=== PATIENT | female | born 1960 | race Caucasian/White ===

== ENCOUNTER → 2018-05-18 09:38 | Outpatient (CLI) | payer OTHER, SELFPAY ==
--- NOTE | 2018-05-18 | DI.MG.S_ITS ---
BILATERAL DIGITAL SCREENING MAMMOGRAM 3D/2D WITH CAD: 05/18/2018 CLINICAL: Routine screening. Comparison is made to exams dated: 05/28/2017 mammogram, 05/17/2017 mammogram, and 02/24/2012 mammogram - [facility]. There are scattered fibroglandular elements in both breasts. Current study was also evaluated with a Computer Aided Detection (CAD) system. There is a 0.3 cm oval equal density focal asymmetry with a circumscribed margin in the left breast at 7 o'clock middle depth. No other significant masses, calcifications, or other findings are seen in either breast. IMPRESSION: INCOMPLETE: NEEDS ADDITIONAL IMAGING EVALUATION The 0.3 cm oval equal density focal asymmetry in the left breast is indeterminate. An ultrasound is recommended. This exam was interpreted at Station ID: [id number]. NOTE: For mammograms, a report in lay terms will be sent to the patient. Approximately 15% of breast malignancies will not be visualized mammographically. In the management of a palpable breast mass, a negative mammogram must not discourage biopsy of a clinically suspicious lesion. Electronically Signed By: Yamil guzman/mary:05/18/2018 16:38:58 copy to: Jake Barker letter sent: Need Ultrasound ACR BI-RADS Category 0: Incomplete 3340F
== END ==
PROVIDERS: PCP Family Medicine; Visit Provider Nurse Practitioner Family
DX: Z12.31 Encounter for screening mammogram for malignant neoplasm of breast (principal)
CPT/HCPCS: 77063; 77067

== ENCOUNTER → 2018-05-27 14:39 | Outpatient (CLI) | payer OTHER, SELFPAY ==
--- NOTE | 2018-05-27 | DI.US.S_ITS ---
ULTRASOUND OF LEFT BREAST: 05/27/2018 CLINICAL: Patient returns for additional imaging over a suspected mass in the left breast. Comparison is made to exams dated: 05/18/2018 mammogram, 05/28/2017 ultrasound biopsy, and 05/17/2017 mammogram - [facility]. Color flow ultrasound of the left breast was performed on the areas of interest. Munoz scale images of the real-time examination were reviewed. There is a benign 0.3 cm x 0.3 cm x 0.3 cm cyst in the left breast at 7 o'clock middle depth. This cyst is anechoic with posterior acoustic enhancement. This correlates with mammography findings. IMPRESSION: BENIGN There is no sonographic evidence of malignancy. The 0.3 cm x 0.3 cm x 0.3 cm cyst in the left breast is benign. A 1 year screening mammogram is recommended. Electronically Signed By: Padmini wright/mary:05/27/2018 16:40:33 copy to: Jake Barker letter sent: Normal Exam Ultrasound BI-RADS: 2 Benign
== END ==
PROVIDERS: PCP Family Medicine; Visit Provider Nurse Practitioner Family
DX: R92.8 Other abnormal and inconclusive findings on diagnostic imaging of breast (principal); N60.02 Solitary cyst of left breast
CPT/HCPCS: 76642

== ENCOUNTER → 2019-05-19 07:36 | Outpatient (CLI) | payer OTHER, SELFPAY ==
--- NOTE | 2019-05-19 | DI.MG.S_ITS ---
BILATERAL DIGITAL SCREENING MAMMOGRAM 3D/2D WITH CAD: 05/19/2019 CLINICAL: Routine screening. Family history of breast cancer. Comparison is made to exams dated: 05/18/2018 mammogram, 05/17/2017 mammogram, 02/24/2012 mammogram, 05/28/2017 ultrasound biopsy, 05/28/2017 mammogram, and 05/17/2017 ultrasound - [facility]. There are scattered fibroglandular elements in both breasts. Current study was also evaluated with a Computer Aided Detection (CAD) system. There is an irregular indistinct focal asymmetry in the superior lateral left breast at subareolar to anterior depth, with possible associated architectural distortion. There is a biopsy clip in the superior lateral left breast. There is a scar marker overlying the left breast. There are bilateral circular mole markers overlying the breasts. IMPRESSION: INCOMPLETE: NEEDS ADDITIONAL IMAGING EVALUATION The irregular indistinct focal asymmetry with possible associated architectural distortion in the superior lateral left breast at subareolar to anterior depth is indeterminate. Additional mammographic views with possible targeted left breast ultrasound recommended for further evaluation. This exam was interpreted at Station ID: [id number]. NOTE: For mammograms, a report in lay terms will be sent to the patient. Approximately 15% of breast malignancies will not be visualized mammographically. In the management of a palpable breast mass, a negative mammogram must not discourage biopsy of a clinically suspicious lesion. Electronically Signed By: Douglas Cummins M.D. ecl/:05/19/2019 12:49:39 copy to: Jake Barker letter sent: Additional Imaging Needed ACR BI-RADS Category 0: Incomplete 3340F
== END ==
PROVIDERS: PCP Family Medicine; Visit Provider Family Medicine
DX: Z12.31 Encounter for screening mammogram for malignant neoplasm of breast (principal); Z80.3 Family history of malignant neoplasm of breast
CPT/HCPCS: 77063; 77067

== ENCOUNTER → 2019-06-08 12:41 | Outpatient (CLI) | payer OTHER, SELFPAY ==
--- NOTE | 2019-06-08 | DI.US.S_ITS ---
LIMITED ULTRASOUND OF LEFT BREAST: 06/08/2019 CLINICAL: Patient returns today to evaluate an architectural distortion in the left breast. Comparison is made to exams dated: 06/08/2019 mammogram, 05/19/2019 mammogram, 05/18/2018 mammogram, 05/28/2017 mammogram, 05/28/2017 ultrasound biopsy, and 05/17/2017 [facility]. Color flow and real-time ultrasound of the left breast 3 o'clock region were performed. Munoz scale images of the real-time examination were reviewed. There is 1 cm x 0.8 cm x 0.9 cm irregular area of fibroglandular tissue in the left breast at 3 o'clock anterior depth. This irregular area of fibroglandular tissue is hypoechoic. This abnormality is not significantly changed. Color flow imaging demonstrates that there is no increase in vascularity. This area was previously biopsied and found to be benign. There also is a dilated duct in the left breast central to the nipple in the retroareolar region immediately adjacent to the above abnormality. Color flow imaging demonstrates that there is no vascularity present. This also is stable compared to the previous study. IMPRESSION: PROBABLY BENIGN The 1 cm x 0.8 cm x 0.9 cm irregular area of fibroglandular tissue in the left breast at 3 o'clock anterior depth is probably benign, particularly given previous benign biopsy results. The dilated duct in the left breast central to the nipple in the retroareolar region is stable. A follow-up mammogram and an ultrasound in 6 months is recommended to demonstrate stability. This exam was interpreted at Station ID: [id number]. Electronically Signed By: Pam whittington/:06/08/2019 16:47:16 copy to: Jake Barker letter sent: Followup Recommended Ultrasound BI-RADS: 3 Probably benign
--- NOTE | 2019-06-08 | DI.MG.S_ITS ---
UNILATERAL LEFT DIGITAL DIAGNOSTIC MAMMOGRAM 3D/2D WITH ADDITIONAL VIEWS: 06/08/2019 CLINICAL: Additional evaluation requested from prior study. Comparison is made to exams dated: 05/19/2019 mammogram, 05/18/2018 mammogram, and 05/17/2017 mammogram - [facility]. There are scattered fibroglandular elements in left breast. There is an irregular focal asymmetry in the left breast at 3 o'clock anterior depth. This is not significantly changed compared to multiple prior exams. There is a biopsy clip associated with the focal asymmetry. No other significant masses or calcifications are seen in the breast. IMPRESSION: INCOMPLETE: NEEDS ADDITIONAL IMAGING EVALUATION The irregular focal asymmetry in the left breast is indeterminate. An ultrasound is recommended to assess for stability. This was performed immediately following this exam. This exam was interpreted at Station ID: [id number]. NOTE: For mammograms, a report in lay terms will be sent to the patient. Approximately 15% of breast malignancies will not be visualized mammographically. In the management of a palpable breast mass, a negative mammogram must not discourage biopsy of a clinically suspicious lesion. Electronically Signed By: Pam whittington/:06/08/2019 16:36:52 copy to: Jake GAXIOLA BI-RADS Category 0: Incomplete 3340F
== END ==
PROVIDERS: PCP Nurse Practitioner Family; Visit Provider Nurse Practitioner Family
DX: R92.8 Other abnormal and inconclusive findings on diagnostic imaging of breast (principal); N60.42 Mammary duct ectasia of left breast
CPT/HCPCS: 76642; 77065; G0279

== ENCOUNTER → 2019-08-23 09:54 | Outpatient (CLI) | payer OTHER, SELFPAY ==
--- NOTE | 2019-08-23 | DI.US.S_ITS ---
PROCEDURE: US PERIPH VENOUS LOW EXTREM LT INDICATIONS: Contusion of left lower leg, initial encounter TECHNIQUE: Real-time imaging, as well as color and pulse Doppler interrogation, were performed of the lower extremity deep veins from the inguinal ligament to the popliteal fossa. COMPARISON: None. FINDINGS: The common femoral, femoral and popliteal veins are normally compressible, and free of intraluminal thrombus. Color and pulse Doppler demonstrate normal phasic intraluminal flow. There is normal augmentation response to distal compression maneuver. No masses or fluid collections seen within the left anterior medial mitchell. IMPRESSION: 1. No deep venous thrombosis identified within the left lower extremity. Dictated by: Giovany STANLEY Interpreted: Rowan Hankins MD on 08/23/2019 at 10:53 Approved by: Rowan Hankins M.D. on 08/23/2019 at 13:48
== END ==
PROVIDERS: PCP Nurse Practitioner Family; Visit Provider Nurse Practitioner Family
DX: S80.12XA Contusion of left lower leg, initial encounter (principal)
CPT/HCPCS: 93971

== ENCOUNTER → 2019-11-10 15:45 | Outpatient (CLI) | payer OTHER, SELFPAY ==
--- NOTE | 2019-11-10 | DI.RAD.S_ITS ---
PROCEDURE: XR KNEE LT 3V INDICATIONS: xr rt/lt knee acite/ mild swelling TECHNIQUE: 3 views of the knee were acquired. COMPARISON: [facility], CR, XR KNEE RT 3V, 11/10/2019, 15:45. FINDINGS: Bones: No fractures or dislocations. No suspicious bony lesions. Trace narrowing of the medial femorotibial joint. Soft tissues: Small joint effusion. No suspicious soft tissue calcifications. IMPRESSION: Trace narrowing of the medial femorotibial joint and small joint effusion. If pain persists with conservative management, consider cross-sectional imaging such as CT or MRI for further assessment. Dictated by: Giovany Chand [facility] Interpreted: Raul Wright MD on 11/10/2019 at 16:07 Approved by: Raul Wright M.D. on 11/10/2019 at 16:46
--- NOTE | 2019-11-10 | DI.RAD.S_ITS ---
PROCEDURE: XR KNEE RT 3V INDICATIONS: xr rt/lt knee acite/ mild swelling TECHNIQUE: 4 views of the knee were acquired. COMPARISON: None. FINDINGS: Bones: No fractures or dislocations. No suspicious bony lesions. Trace narrowing of the medial and lateral femorotibial joints. Soft tissues: Small joint effusion. No suspicious soft tissue calcifications. IMPRESSION: 1. Small knee joint effusion and trace narrowing of the medial and lateral femorotibial joints. If pain persist with conservative management, consider advancing imaging such as MRI for further assessment. Dictated by: Giovany Chand [facility] Interpreted: Raul Wright MD on 11/10/2019 at 16:06 Approved by: Raul Wright M.D. on 11/10/2019 at 16:46
== END ==
PROVIDERS: PCP Nurse Practitioner Family; Visit Provider Nurse Practitioner Family
DX: M25.561 Pain in right knee (principal); M25.462 Effusion, left knee; M25.461 Effusion, right knee
CPT/HCPCS: 73562

== ENCOUNTER → 2020-05-27 13:39 | Outpatient (CLI) | payer OTHER, SELFPAY ==
--- NOTE | 2020-05-27 | DI.US.S_ITS ---
LIMITED ULTRASOUND OF LEFT BREAST: 05/27/2020 CLINICAL: Patient returns today to evaluate a focal asymmetry in the left breast. Comparison is made to exams dated: 05/27/2020 mammogram, 06/08/2019 ultrasound, 06/08/2019 mammogram, 05/19/2019 mammogram, and 05/27/2018 ultrasound - [facility]. Color flow and real-time ultrasound of the left breast 3 o'clock, and retroareolar regions were performed on the areas of interest. There is a dilated duct in the left breast at 3 o'clock in the retroareolar region. This dilated duct displays internal echoes and ill-defined hypoechoic soft tissue. This abnormality is not significantly changed and correlates with mammography findings and the previous biopsy. There is an associated biopsy clip. Color flow imaging demonstrates that there is no vascularity present. There also is a 0.4 cm x 0.4 cm x 0.2 cm oval cyst in the left breast at 3 o'clock middle depth. This oval cyst is hypoechoic with a well-defined boundary and internal echoes. This correlates with mammography findings. Color flow imaging demonstrates that there is no vascularity present. IMPRESSION: PROBABLY BENIGN The dilated duct in the left breast at 3 o'clock in the retroareolar region with hypoechoic internal soft tissue corresponding to the prior biopsy is probably benign. Follow-up mammogram and ultrasound in 6 months are recommended. The 0.4 cm x 0.4 cm x 0.2 cm oval cyst in the left breast at 3 o'clock middle depth is consistent with a complicated cyst and is probably benign. Follow-up mammogram and ultrasound in 6 months are recommended. A follow-up mammogram and an ultrasound in 6 months is recommended to demonstrate stability. This exam was interpreted at Station ID: [id number]. Electronically Signed By: Yamil Romero M.D. ddp/:05/27/2020 15:40:37 copy to: Jake Barker copy to: Shanta Carrillo letter sent: Followup Recommended Ultrasound BI-RADS: 3 Probably benign
--- NOTE | 2020-05-27 | DI.MG.S_ITS ---
BILATERAL DIGITAL DIAGNOSTIC MAMMOGRAM 3D/2D SHORT-TERM FOLLOW-UP: 05/27/2020 CLINICAL: Patient returns for a 6 month follow up of the left breast, due for bilateral imaging. Comparison is made to exams dated: 06/08/2019 mammogram, 05/19/2019 mammogram, and 05/18/2018 mammogram - [facility]. There are scattered fibroglandular elements in both breasts. There is an irregular equal density asymmetry with an indistinct margin in the left breast at 3 o'clock anterior depth. This is not significantly changed. There also is a new 0.4 cm oval low density focal asymmetry with an indistinct and circumscribed margin in the left breast at 3 o'clock middle depth. No other significant masses, calcifications, or other findings are seen in either breast. IMPRESSION: INCOMPLETE: NEEDS ADDITIONAL IMAGING EVALUATION The irregular equal density asymmetry in the left breast at 3 o'clock anterior depth is indeterminate. An ultrasound is recommended. The new 0.4 cm oval low density focal asymmetry in the left breast at 3 o'clock middle depth is indeterminate. An ultrasound is recommended. This exam was interpreted at Station ID: [id number]. NOTE: For mammograms, a report in lay terms will be sent to the patient. Approximately 15% of breast malignancies will not be visualized mammographically. In the management of a palpable breast mass, a negative mammogram must not discourage biopsy of a clinically suspicious lesion. Electronically Signed By: Yamil guzman/mary:05/27/2020 14:56:24 copy to: Jake Barker copy to: Shanta GAXIOLA BI-RADS Category 0: Incomplete 3340F
== END ==
PROVIDERS: PCP Internal Medicine; Referring Provider Nurse Practitioner Family; Visit Provider Nurse Practitioner Family
DX: R92.8 Other abnormal and inconclusive findings on diagnostic imaging of breast (principal); N60.02 Solitary cyst of left breast; N60.42 Mammary duct ectasia of left breast
CPT/HCPCS: 76642; 77066; G0279

== ENCOUNTER → 2021-02-28 15:02 | Outpatient (CLI) | payer OTHER, SELFPAY ==
--- NOTE | 2021-02-28 | DI.MG.S_ITS ---
BILATERAL DIGITAL DIAGNOSTIC MAMMOGRAM 3D/2D SHORT-TERM FOLLOW-UP: 02/28/2021 CLINICAL: Short term follow up of the left breast, due for bilateral imaging. Comparison is made to exams dated: 05/27/2020 mammogram, 06/08/2019 mammogram, and 05/19/2019 mammogram - [facility]. There are scattered fibroglandular elements in both breasts. There is an irregular equal density asymmetry with an indistinct margin in the left breast at 3 o'clock anterior depth. This is not significantly changed. There also is a 0.4 cm oval low density focal asymmetry with an obscured margin in the left breast at 3 o'clock middle depth. This is not significantly changed. No other significant masses, calcifications, or other findings are seen in either breast. IMPRESSION: INCOMPLETE: NEEDS ADDITIONAL IMAGING EVALUATION The irregular equal density asymmetry in the left breast at 3 o'clock anterior depth remains indeterminate. An ultrasound is recommended for further evaluation and is scheduled to immediately follow this examination. The 0.4 cm oval low density focal asymmetry in the left breast at 3 o'clock middle depth also remains indeterminate. An ultrasound is recommended for further evaluation and is scheduled to immediately follow this examination. This exam was interpreted at Station ID: [id number]. NOTE: For mammograms, a report in lay terms will be sent to the patient. Approximately 15% of breast malignancies will not be visualized mammographically. In the management of a palpable breast mass, a negative mammogram must not discourage biopsy of a clinically suspicious lesion. Electronically Signed By: Roland Orellana M.D. aty/:02/28/2021 15:55:39 copy to: Jake Barker copy to: Shanta Carrillo ACR BI-RADS Category 0: Incomplete 3340F
--- NOTE | 2021-02-28 15:05 | DI.US.S_ITS ---
ULTRASOUND OF LEFT BREAST: 02/28/2021 CLINICAL: Patient returns today to evaluate a focal asymmetry in the left breast. Comparison is made to exams dated: 02/28/2021 mammogram, 05/27/2020 ultrasound, 05/27/2020 mammogram, 06/08/2019 ultrasound, 06/08/2019 mammogram, and 05/19/2019 mammogram - [facility]. Color flow and real-time ultrasound of the left breast were performed. Munoz scale images of the real-time examination were reviewed. There is a minimallly dilated duct in the left breast at 3 o'clock in the retroareolar region. This dilated duct displays internal echoes/debris. This abnormality is not significantly changed and correlates with mammography findings and the previous biopsy. There is an associated biopsy clip. Color flow imaging demonstrates that there is no vascularity present. There also is a 0.4 cm x 0.2 cm x 0.2 cm oval cyst in the left breast at 3 o'clock middle depth 5 cm from the nipple. This oval cyst is hypoechoic with a well-defined boundary and internal echoes. This abnormality is not significantly changed and correlates with mammography findings. Color flow imaging demonstrates that there is no vascularity present. IMPRESSION: PROBABLY BENIGN The minimally dilated duct in the left breast at 3 o'clock in the retroareolar region is not significantly changed and is probably benign. The 0.4 cm x 0.2 cm x 0.2 cm oval cyst in the left breast at 3 o'clock middle depth is consistent with a complicated cyst and is probably benign. A follow-up bilateral mammogram and a left ultrasound in 12 months is recommended to document long-term stability. Findings and recommendations were conveyed to the patient during today's evaluation. This exam was interpreted at Station ID: [id number]. Electronically Signed By: Roland Orellana M.D. aty/:02/28/2021 17:20:59 copy to: Jake Barker copy to: Shanta Carrillo letter sent: Followup Recommended Ultrasound BI-RADS: 3 Probably benign
== END ==
PROVIDERS: PCP Internal Medicine; Referring Provider Internal Medicine; Visit Provider Internal Medicine
DX: R92.8 Other abnormal and inconclusive findings on diagnostic imaging of breast (principal); N60.02 Solitary cyst of left breast
CPT/HCPCS: 76642; 77066; G0279

== ENCOUNTER → 2021-03-21 08:09 | Outpatient (CLI) | payer OTHER, SELFPAY ==
[2021-03-21] MEDS: COVID-19 VACC #1, MRNA(MOD) 100 MCG/0.5 ML VIAL IM (08:20)
== END ==
PROVIDERS: PCP Internal Medicine; Visit Provider Internal Medicine
DX: Z23 Encounter for immunization (principal)
CPT/HCPCS: 0011A; 91301

== ENCOUNTER → 2021-04-18 08:04 | Outpatient (CLI) | payer OTHER, SELFPAY ==
[2021-04-18] MEDS: COVID-19 VACC #2, MRNA(MOD) 100 MCG/0.5 ML VIAL IM (08:08)
== END ==
PROVIDERS: PCP Internal Medicine; Visit Provider Internal Medicine
DX: Z23 Encounter for immunization (principal)
CPT/HCPCS: 0012A; 91301

== ENCOUNTER → 2022-06-22 11:51 | Outpatient (CLI) | payer OTHER, SELFPAY ==
--- NOTE | 2022-06-22 | DI.MG.S_ITS ---
BILATERAL DIGITAL DIAGNOSTIC MAMMOGRAM 3D/2D SHORT-TERM FOLLOW-UP: 06/22/2022 CLINICAL: Short term follow up of the left breast, due for bilateral imaging. Comparison is made to exams dated: 02/28/2021 mammogram, 05/27/2020 mammogram, 06/08/2019 mammogram, 05/19/2019 mammogram, and 02/28/2021 [facility]. There are scattered fibroglandular elements in both breasts. There is an asymmetry in the left breast at 3 o'clock anterior depth. This is not significantly changed. There also is a focal asymmetry in the left breast at 3 o'clock middle depth. This is less prominent. No other significant masses, calcifications, or other findings are seen in either breast. IMPRESSION: INCOMPLETE: NEEDS ADDITIONAL IMAGING EVALUATION The asymmetry in the left breast at 3 o'clock anterior depth most likely is fibroglandular tissue and is indeterminate. The focal asymmetry in the left breast at 3 o'clock middle depth is consistent with fibroglandular tissue and is benign. Based on Tyrer-Cuzick model (a risk assessment model), the patient's lifetime risk is 21.0% and her 10 year risk is 8.4%. If a patient has an elevated risk, a more comprehensive evaluation should be considered and/or a referral to a genetic counselor. The [place] [employer], [employer], and NCCN Guidelines advise the consideration of Breast MRI as an adjunct to screening mammography in patients whose Lifetime risk to develop breast cancer is 20% or higher. This exam was interpreted at Station ID: [id number]. NOTE: For mammograms, a report in lay terms will be sent to the patient. Approximately 15% of breast malignancies will not be visualized mammographically. In the management of a palpable breast mass, a negative mammogram must not discourage biopsy of a clinically suspicious lesion. Electronically Signed By: Aston Colvin M.D. slc/:06/22/2022 12:47:10 copy to: Jake Barker copy to: Shanta GAXIOLA BI-RADS Category 0: Incomplete 3340F
--- NOTE | 2022-06-22 | DI.US.S_ITS ---
LIMITED ULTRASOUND OF LEFT BREAST: 06/22/2022 CLINICAL: 2 year follow up from left breast bx w/clip. Comparison is made to exams dated: 06/22/2022 mammogram, 02/28/2021 ultrasound, 02/28/2021 mammogram, 05/27/2020 mammogram, 05/27/2020 ultrasound, and 06/08/[address] [facility]. Color flow and real-time ultrasound of the left breast 3 o'clock region were performed. Munoz scale images of the real-time examination were reviewed. There is a benign 1.7 cm x 0.6 cm x 0.5 cm oval mass or debris in the left breast at 3 o'clock middle depth. This oval intraductal mass is hypoechoic. This abnormality is not significantly changed. There is an associated biopsy clip. Color flow imaging demonstrates that there is no vascularity present. There also is a stable benign 0.6 cm x 0.4 cm x 0.2 cm round cyst in the left breast at 3 o'clock middle depth 5 cm from the nipple. This round cyst is anechoic and hypoechoic with a well-defined boundary. This correlates with mammography findings. Color flow imaging demonstrates that there is no vascularity present. IMPRESSION: BENIGN There is no sonographic evidence of malignancy. The 1.7 cm mass or intraductal debris in the left breast at 3 o'clock middle depth is benign. The stable 0.6 cm complicated cyst in the left breast at 3 o'clock middle depth is benign. A 1 year screening mammogram is recommended. This exam was interpreted at Station ID: [id number]. Electronically Signed By: Aston Colvin M.D. slc/:06/22/2022 13:31:37 copy to: Jake Barker copy to: hSanta Carrillo letter sent: Normal Exam Ultrasound BI-RADS: 2 Benign
== END ==
PROVIDERS: PCP Internal Medicine; Referring Provider Internal Medicine; Visit Provider Internal Medicine
DX: R92.8 Other abnormal and inconclusive findings on diagnostic imaging of breast (principal); N60.02 Solitary cyst of left breast
CPT/HCPCS: 76642; 77066; G0279

== ENCOUNTER → 2022-08-05 09:27 | Outpatient (CLI) | payer OTHER, SELFPAY ==
[2022-08-05 12:15] LABS: COVID19 -Nasal RAPID Negative (Negative)
== END ==
PROVIDERS: PCP Internal Medicine; Visit Provider Surgery
DX: Z01.812 Encounter for preprocedural laboratory examination (principal); Z20.822 Contact with and (suspected) exposure to COVID-19
CPT/HCPCS: 87635; C9803

== ENCOUNTER 2022-08-06 13:32 | Day surgery (SDC) | payer OTHER, SELFPAY ==
[2022-08-06 13:56] VITALS: BP 170/84; PULSE 67; RESP 19; TEMP 36; O2SAT 98; BMI 48.7
[2022-08-06] MEDS: LACTATED RINGERS 1,000 ML 42 ML IV (14:09)
--- NOTE | 2022-08-06 14:22 | PM.HP.1 ---
History of Present Illness History of Present Illness Date Patient Seen: 08/06/22 Time Patient Seen: 14:22 Chief complaint: SDC Narrative: Camila is a 61-year-old woman here for a colonoscopy for colon cancer screening. Her last colonoscopy was about 7 years ago here and no polyps were removed. She has no first-degree relatives who have had colon cancer. Patient History Surgical History (Updated 03/29/18 @ 06:18 by Conversion Provider) Status post surgery (03/21/12) Family & Social History Social History: household members spouse Tobacco & Substance use: Smoking Status Never smoker alcohol intake frequency holiday/special occasion Substance Use Type does not use Meds Home Medications and Allergies Home Medications Medication Instructions Recorded Confirmed Type atorvastatin 10 mg tablet 10 mg PO DAILY 08/06/22 08/06/22 History chlorthalidone 25 mg tablet 25 mg PO DAILY 08/06/22 08/06/22 History Exam Vital Signs (past 8 hours): - 08/06/22 13:56 Temperature 96.8 F L Pulse Rate 67 Respiratory Rate 19 Blood Pressure 170/84 H Pulse Oximetry 98 Oxygen Delivery Method Room Air Oxygen Delivery Method Room Air Const General: No acute distress Resp Effort & Inspection: normal respiratory effort Assessment & Plan Assessment and plan (1) Colon cancer screening: Status: Acute Plan 61-year-old woman in for colonoscopy for colon cancer screening. We reviewed the risks and benefits and she would like to proceed. Time Spent With Patient Critical Care time: I spent a total of [] minutes of critical care time on this patient's care today; this time is exclusive of procedural time.
[2022-08-06] MEDS: fentaNYL 100 MCG/2 ML INJ 200 MCG IV (14:45)
[2022-08-06] MEDS: MIDAZOLAM 5 MG/5 ML VIAL 8 MG IV (14:45)
--- NOTE | 2022-08-06 14:54 | P.OP.COLON_ITS ---
Operative Date/Time/Diagnoses Date of procedure: 08/06/22 Time of procedure: 14:54 Pre-op diagnosis: Colon cancer screening Post-op diagnosis: same Procedure & Clinicians Study performed: Colonoscopy Surgeon: Wing Alarcon Procedure Notes Procedure in detail: Surgeon: Wing Alarcon MD Procedure: The patient was brought to the endoscopy suite, placed in left lateral decubitus position. The patient was connected to monitoring devices. A time-out was performed. Sedation was administered. Once the patient was a dequately sedated, a digital rectal exam was performed and was normal. The scope was then inserted and advanced and advanced. The patient had an extremely redundant long colon and the scope could not reach the cecum despite being inserted to the dials. Manual pressure was applied and the patient was repositioned on her back with no improvement in getting to the cecum. The scope stiffener was used with no improvement. The scope was then slowly withdrawn. The mucosa was thoroughly inspected. No abnormalities were noted. The scope could not be retroflexed in the rectum because the sphincter tone was too low to hold any air in the rectal vault. The mucosa was inspected carefully as the scope was slowly withdrawn and no lesions were noted. The patient was awakened and brought to recovery. Versed: 8 mg Fentanyl: 200 mcg EBL: 0 Findings: Normal distal colon Scope withdrawal time: Not applicable Sedation minutes: 22 Post-procedure Plan for aftercare: A barium enema will be ordered to assess the proximal colon Disposition: PACU
[2022-08-06 15:03] VITALS: BP 156/98; PULSE 79; RESP 16; TEMP 36.3; O2SAT 94
[2022-08-06 15:07] VITALS: BP 156/95; PULSE 76; RESP 16; TEMP 36.3; O2SAT 95
[2022-08-06 15:20] VITALS: BP 141/75; PULSE 72; RESP 16; TEMP 36.2; O2SAT 98
[2022-08-06 15:21] VITALS: BP 141/100; PULSE 74; RESP 16; TEMP 36.3; O2SAT 100
--- NOTE | 2022-08-06 15:53 | SUR.PREOP ---
Patient ambulated to wheelchair without difficulty. Tolerated PO. Provided written and verbal discharge instructions. Patient signed and stated understanding. Discharged by wheelchair to private vehicle in stable condition.
== END 2022-08-06 15:41 | disposition home or self-care (01) ==
PROVIDERS: PCP Internal Medicine; Referring Provider Surgery; Visit Provider Surgery
PROC: 0DJD8ZZ Inspection of Lower Intestinal Tract, Via Natural or Artificial Opening Endoscopic (ICD-10-PCS; CPT 45378; principal; 2022-08-06 14:30)
DX: Z12.11 Encounter for screening for malignant neoplasm of colon (principal); Z53.09 Procedure and treatment not carried out because of other contraindication
CPT/HCPCS: 45378; 99152; J2250; J3010

== ENCOUNTER → 2022-10-06 09:58 | Outpatient (CLI) | payer OTHER, SELFPAY ==
--- NOTE | 2022-10-06 09:59 | DI.RAD.S_ITS ---
PROCEDURE: FL BARIUM ENEMA W AIR CONTRAST INDICATIONS: Unable to complete colonoscopy COMPARISON: [facility], BARIUM ENEMA W AIR CONTRAST, 11/19/2011, 10:03. [facility], US BREAST LT LIMITED, 06/22/2022, 12:48. FINDINGS: KUB: Pre-procedural juvenile detention officer film demonstrates a normal bowel gas pattern. No suspicious abdominal calcifications. Visualized solid organ contours are normal in size. No suspicious bony lesions. Cholecystectomy clips are noted. Degenerative changes in lumbar spine. Colon: Colon is redundant and suboptimal air inflation. The cecum is in the left side of the abdomen and descending colon is on the right side of the abdomen, consistent with malrotation. There are scattered colonic diverticula. No strictures, ulcers, polyps, or masses are seen. Haustral folds are normal in thickness throughout. IMPRESSION: 1. Complete malrotation with cecum on the left side of abdomen and descending colon on the right side of the abdomen. 2. Mild colonic diverticulosis. 3. No colon polyps or masses are identified. The examination is somewhat suboptimal due to redundant colon and suboptimal air inflation. Dictated by: Anitha Ragsdale M.D. on 10/06/2022 at 19:58 Approved by: Anitha Ragsdale M.D. on 10/07/2022 at 11:24
== END ==
PROVIDERS: PCP Internal Medicine; Referring Provider Surgery; Visit Provider Surgery
DX: Z12.11 Encounter for screening for malignant neoplasm of colon (principal); Q43.3 Congenital malformations of intestinal fixation; Q43.8 Other specified congenital malformations of intestine; K57.30 Diverticulosis of large intestine without perforation or abscess without bleeding
CPT/HCPCS: 74280

== ENCOUNTER → 2022-12-18 13:52 | Outpatient (CLI) | payer OTHER, SELFPAY ==
--- NOTE | 2022-12-18 | DI.US.S_ITS ---
PROCEDURE: US PERIPH VENOUS LOW EXTREM RT INDICATIONS: PAIN AND LOCALIZED SWELLING, MASS, OR LUMP. RULE OUT DVT. TECHNIQUE: Real-time imaging, as well as color and pulse Doppler interrogation, were performed of the lower extremity deep veins from the inguinal ligament to the popliteal fossa. COMPARISON: None. FINDINGS: The common femoral, femoral and popliteal veins are normally compressible, and free of intraluminal thrombus. Color and pulse Doppler demonstrate normal phasic intraluminal flow. There is normal augmentation response to distal compression maneuver. IMPRESSION: Negative for deep venous thrombosis. Dictated by: Jameel Dennis M.D. on 12/18/2022 at 13:36 Approved by: Jameel Dennis M.D. on 12/18/2022 at 13:37
== END ==
PROVIDERS: PCP Internal Medicine; Referring Provider Internal Medicine; Visit Provider Internal Medicine
DX: M79.604 Pain in right leg (principal); R22.41 Localized swelling, mass and lump, right lower limb
CPT/HCPCS: 93971

== ENCOUNTER → 2024-01-10 10:28 | Outpatient (CLI) | payer OTHER, SELFPAY ==
--- NOTE | 2024-01-10 | DI.US.S_ITS ---
ULTRASOUND OF LEFT BREAST: 01/10/2024 CLINICAL: Bloody nipple discharge left breast. Comparison is made to exams dated: 01/10/2024 mammogram, 06/22/2022 ultrasound, 06/22/2022 mammogram, 02/28/2021 ultrasound, 02/28/2021 mammogram, and 05/27/2020 ultrasound - [facility]. Color flow and real-time ultrasound of the left breast were performed. Munoz scale images of the real-time examination were reviewed. There is a 2 cm x 0.7 cm x 0.4 cm irregular intraductal mass in the left breast at 3 o'clock middle depth. This irregular intraductal mass is hypoechoic. This abnormality is increased in size and correlates with the nipple discharge. There is an associated biopsy clip. Color flow imaging demonstrates that there is vascularity present. No significant axillary abnormality. IMPRESSION: SUSPICIOUS OF MALIGNANCY The 2 cm x 0.7 cm x 0.4 cm irregular intraductal mass in the left breast is suspicious of malignancy. This was previously followed and biopsied with no malignant results. However, this has slightly increased in size. Patient reports recent new bloody nipple discharge. US biopsy recommended. No significant axillary abnormality. This exam was interpreted at Station ID: [id number]. Electronically Signed By: Ferny Hammond M.D. lc/:01/10/2024 12:08:03 copy to: Jake Barker copy to: Shanta Carrillo letter sent: Biopsy Required Ultrasound BI-RADS: 4 Suspicious for malignancy
--- NOTE | 2024-01-10 | DI.MG.S_ITS ---
BILATERAL DIGITAL DIAGNOSTIC MAMMOGRAM 3D/2D: 01/10/2024 CLINICAL: Bloody discharge. Comparison is made to exams dated: 06/22/2022 mammogram, 02/28/2021 mammogram, and 05/27/2020 mammogram - [facility]. There are scattered areas of fibroglandular density in both breasts (category b / 25%-50% glandular tissue). There is a stable focal asymmetry in the left breast at 3 o'clock anterior depth. This may correspond to new bloody discharge. No other significant masses, calcifications, or other findings are seen in either breast. IMPRESSION: INCOMPLETE: NEEDS ADDITIONAL IMAGING EVALUATION The stable focal asymmetry in the left breast is indeterminate. An ultrasound is recommended. This may correspond to new bloody discharge. Based on Tyrer-Cuzick model (a risk assessment model), the patient's lifetime risk is 20.2% and her 10 year risk is 8.7%. If a patient has an elevated risk, a more comprehensive evaluation should be considered and/or a referral to a genetic counselor. The [employer], [employer], and NCCN Guidelines advise the consideration of Breast MRI as an adjunct to screening mammography in patients whose Lifetime risk to develop breast cancer is 20% or higher. This exam was interpreted at Station ID: [id number]. NOTE: For mammograms, a report in lay terms will be sent to the patient. Approximately 15% of breast malignancies will not be visualized mammographically. In the management of a palpable breast mass, a negative mammogram must not discourage biopsy of a clinically suspicious lesion. Electronically Signed By: Ferny Hammond M.D. lc/:01/10/2024 12:03:28 copy to: Jake Barker copy to: Shanta Carrillo ACR BI-RADS Category 0: Incomplete [id number]
== END ==
PROVIDERS: PCP Internal Medicine; Referring Provider Internal Medicine; Visit Provider Internal Medicine
DX: R92.8 Other abnormal and inconclusive findings on diagnostic imaging of breast (principal); N63.15 Unspecified lump in the right breast, overlapping quadrants; N64.52 Nipple discharge; R92.323 Mammographic fibroglandular density, bilateral breasts
CPT/HCPCS: 76642; 77066; G0279

== ENCOUNTER → 2024-01-24 13:24 | Outpatient (CLI) | payer OTHER, SELFPAY ==
--- NOTE | 2024-01-24 | DI.US.S_ITS ---
ULTRASOUND GUIDED BIOPSY LEFT BREAST WITH MARKING DEVICE INSERTED AND POST MAMMOGRAPHIC IMAGIN01/24/2024 CLINICAL: Left breast mass. PATIENT CONSENT: Risks (minor bleeding, infection, vasovagal reaction and repeat procedure), benefits and alternatives were explained to the patient and written informed consent was obtained. Correlation is made to exams dated: 01/10/2024 ultrasound, 01/10/2024 mammogram, 06/22/2022 ultrasound, 06/22/2022 mammogram, 02/28/2021 ultrasound, and 02/28/2021 mammogram - [facility]. An ultrasound guided biopsy using real-time ultrasound was performed for the irregular shaped mass located in the left breast at 3 o'clock anterior depth. This was described on the previous mammography and ultrasound reports. The skin was prepped in the usual manner. Local anesthetic was administered to the access site. The abnormality was approached from the lateral aspect. An 18 gauge biopsy needle was placed adjacent to the abnormality through an introducer device under ultrasound guidance. Once the needle was documented to be in the correct location, seven specimens were obtained using a BARD biopsy device. A Vision clip was inserted into the biopsy cavity. A sterile dressing was applied to the access site. Post procedure mammographic imaging demonstrates the location device at the targeted area. The specimens were sent to the laboratory for pathological analysis. IMPRESSION: ULTRASOUND GUIDED BIOPSY BENIGN Ultrasound guided biopsy of the mass in the left breast at 3 o'clock anterior depth was successful. Pathology indicates papilloma (PA). Pathology results are concordant with imaging findings. A follow-up ultrasound in 6 months is recommended to demonstrate stability. This exam was interpreted at Station ID: [id number]. Roland salas,[facility]/:01/28/2024 12:48:25 copy to: Jake Barker copy to: Shanta Carrillo
--- NOTE | 2024-01-24 | PATH_ITS ---
[facility] Accession Number: [id number] No. of containers..01 Tissue . 01 Material submitted: . breast - LEFT BREAST NDL CORE . 01 Clinical history: . LEFT BREAST 3:00 RETRO MASS . 01 Diagnosis: LEFT BREAST, 3 O'CLOCK, RETRO, IMAGE-GUIDED CORE BIOPSY: Scant hyalinized fibrous tissue with changes suggestive of a sclerosed papilloma. See comment. MRV 01/27/2024 1718 Local . 01 Comment: The specimen is relatively scant and consists primarily of hyalinized fibrous tissue. A single detached fragment of a papillary epithelial lesion is seen without significant cytologic atypia. A limited panel of immunostains is performed on block A2, with the controls stained appropriately. The myoepithelial markers p63 and smooth muscle myosin heavy chain show positive staining around all of the ducts and also around the epithelial cells within the papillary lesion. 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 . * This test was developed and its performance characteristics determined by [facility]. It has not been cleared or approved by the U.S. Food and Drug Administration. The FDA has determined that such clearance or approval is not necessary. This test is used for clinical purposes. It should not be regarded as investigational or for research. . 01 Electronically signed: . Camila Matamoros MD, Pathologist NPI- [id number] . 01 Gross description: . The specimen is received in formalin labeled with the patient's name, , and US breast needle core biopsy, consists of 12 delicate cores of yellow-white fibrofatty soft tissue ranging from 0.1 to 0.7 cm in length and averaging 0.1 cm in diameter. The tissue is entirely submitted in cassettes A1-A2. . Time in formalin: 01/24/2024 at 1435. Cold ischemic time cannot be determined. Formalin fixation time is approximately 30 hours. ([id number]) /MRV 01/25/2024 1456 Local . 01 Pathologist provided ICD-10: N63.20 . 01 CPT . 111599, H58402, H89085 Specimen Comment: A courtesy copy of this report has been sent to [phone] Specimen Comment: A duplicate report has been generated due to demographic updates. Performed at: 01 [facility] [address] [place] [address] [address], [place], [place] [id number] MD Yamil Mckeon MD Phone: [phone]
--- NOTE | 2024-01-24 13:26 | DI.MG.S_ITS ---
UNILATERAL LEFT DIGITAL DIAGNOSTIC MAMMOGRAM 3D/2D POST-PROCEDURE IMAGING FOR MARKER PLACEMENT: 01/24/2024 CLINICAL: Post left breast ultrasound biopsy, clip placement imaging. Comparison is made to exams dated: 01/10/2024 ultrasound, 01/10/2024 mammogram, 06/22/2022 mammogram, and 06/22/2022 ultrasound - [facility]. There are scattered areas of fibroglandular density in the left breast (category b / 25%-50% glandular tissue). There is a marker clip in the appropriate position in the left breast at 3 o'clock anterior depth. This marker clip placement is at the biopsy site. This correlates with ultrasound findings and the biopsy. IMPRESSION: POST PROCEDURE MAMMOGRAM FOR MARKER PLACEMENT There was a successful marker clip placement in the left breast anterior depth. Based on Tyrer-Cuzick model (a risk assessment model), the patient's lifetime risk is 20.2% and her 10 year risk is 8.7%. If a patient has an elevated risk, a more comprehensive evaluation should be considered and/or a referral to a genetic counselor. The [employer], [employer], and NCCN Guidelines advise the consideration of Breast MRI as an adjunct to screening mammography in patients whose Lifetime risk to develop breast cancer is 20% or higher. This exam was interpreted at Station ID: [id number]. NOTE: For mammograms, a report in lay terms will be sent to the patient. Approximately 15% of breast malignancies will not be visualized mammographically. In the management of a palpable breast mass, a negative mammogram must not discourage biopsy of a clinically suspicious lesion. Electronically Signed By: Roland salas/mary:01/24/2024 18:59:01 copy to: Jake Barker copy to: Shanta Carrillo ACR BI-RADS Category Post-procedure mammogram for marker placement
== END ==
LOC: US 13:25
PROVIDERS: PCP Internal Medicine; Referring Provider Internal Medicine; Visit Provider Internal Medicine
DX: D24.2 Benign neoplasm of left breast (principal); N64.52 Nipple discharge; R92.8 Other abnormal and inconclusive findings on diagnostic imaging of breast
CPT/HCPCS: 19083; 77065

== ENCOUNTER → 2024-03-21 08:01 | Outpatient (CLI) | payer OTHER, SELFPAY ==
--- NOTE | 2024-03-21 08:02 | DI.US.S_ITS ---
NEEDLE LOCALIZATION LEFT BREAST: 03/21/2024 CLINICAL: Wire loc placement lt breast for surgical excision. Correlation is made to exams dated: 03/21/2024 mammogram, 03/21/2024 specimen, 01/24/2024 ultrasound biopsy, 01/24/2024 mammogram, 01/10/2024 ultrasound, and 01/10/2024 mammogram - [facility]. A needle localization was performed for the marker clip located in the left breast at 3 o'clock anterior depth. The skin was prepped in the usual manner. The localization was approached from the craniocaudal aspect. A needle was inserted into the targeted area. IMPRESSION: NEEDLE LOCALIZATION Needle localization for the marker clip in the left breast at 3 o'clock anterior depth was performed. A surgical excision is recommended. Future imaging is recommended as follows: 07/25/2024 follow-up left ultrasound. This exam was interpreted at Station ID: [id number]. Enzo martinez/mary:03/21/2024 11:20:10 copy to: Jake Barker copy to: Shanta Carrillo
== END ==
LOC: US 08:02
PROVIDERS: PCP Internal Medicine; Referring Provider Surgery; Visit Provider Surgery
DX: N63.25 Unspecified lump in the left breast, overlapping quadrants (principal)
CPT/HCPCS: 19285; C1819

== ENCOUNTER 2024-03-21 08:02 | Day surgery (SDC) | payer OTHER, SELFPAY ==
[2024-03-08 08:13] VITALS: BMI 49.4
--- NOTE | 2024-03-21 | DI.MG.S_ITS ---
UNILATERAL LEFT DIGITAL DIAGNOSTIC MAMMOGRAM 3D/2D: 03/21/2024 CLINICAL: Post wire placement. Comparison is made to exams dated: 03/21/2024 specimen, 01/24/2024 mammogram, 01/10/2024 ultrasound, and 01/10/2024 mammogram - [facility]. There are scattered areas of fibroglandular density in the left breast (category b / 25%-50% glandular tissue). There is a marker clip in the appropriate position in the left breast at 5 o'clock middle depth. IMPRESSION: POST PROCEDURE MAMMOGRAM FOR MARKER PLACEMENT There was a successful marker clip placement in the left breast middle depth. Future imaging is recommended as follows: 07/25/2024 follow-up left ultrasound. Based on Tyrer-Cuzick model (a risk assessment model), the patient's lifetime risk is 20.2% and her 10 year risk is 8.7%. If a patient has an elevated risk, a more comprehensive evaluation should be considered and/or a referral to a genetic counselor. The [employer], [employer], and NCCN Guidelines advise the consideration of Breast MRI as an adjunct to screening mammography in patients whose Lifetime risk to develop breast cancer is 20% or higher. This exam was interpreted at Station ID: [id number]. NOTE: For mammograms, a report in lay terms will be sent to the patient. Approximately 15% of breast malignancies will not be visualized mammographically. In the management of a palpable breast mass, a negative mammogram must not discourage biopsy of a clinically suspicious lesion. Electronically Signed By: Enzo martinez/mary:03/21/2024 11:21:57 copy to: Jake Barker copy to: Shanta Carrillo ACR BI-RADS Category Post-procedure mammogram for marker placement
--- NOTE | 2024-03-21 | PATH_ITS ---
[facility] Accession Number: [id number] No. of containers..01 Tissue . 01 Material submitted: . breast - LEFT BREAST . 01 Diagnosis: LEFT BREAST, LUMPECTOMY: Sclerosing lesion, with histologic features suggestive of sclerosing papilloma. Background florid usual duct hyperplasia, apocrine metaplasia, and fibrocystic changes including columnar cell changes and columnar cell hyperplsaia. No evidence of atypical duct hyperplasia, in situ, and invasive malignancy. [facility] 03/27/2024 1738 Local . 01 Comment: Selected slides (A2-A5) of this case have also been reviewed by Dr. Alicia Hogan, who concurs with the diagnosis. . 01 Electronically signed: . Phylicia Barragan MD, Pathologist NPI- [id number] . 01 Gross description: . Received: In formalin with two identifiers and L breast tissue. Specimen: A previously inked left lumpectomy. Weight: 14 grams. Measurement: 3.7 cm from anterior to posterior, 3.5 cm from medial to lateral, 2.2 cm from superior to inferior. Skin ellipse: Absent. Wire: Absent. Margins: Inked by the surgeon as follows: Anterior yellow, inferior blue, lateral orange, medial yellow, posteroir black, superior red. Inking reinforced at the bench. Sliced: From medial to lateral into eight slices. Lesion: A small, fairly definted, benz, firm nodule measures 0.3 x 0.2 x 0.2 cm. Slices involved: Slice 3. Biopsy site: A Vision biopsy clip is found within slice 4 with associated fibrous biopsy site changes found within slices 1-7. Distance to margins: The nodule measures 0.7 cm from the black margin and greater than 1 cm from all remaining margins. The biopsy site fibrous tissue grossly approaches the green, blue, and yellow margins, and is widely free from all remaining margins. Other: The remaining cut surfaces are yellow to white fibroadipsoe tissue with fibrous tissue occupying approximately 20% of the cut surface. Also within the container is a separate portion of adipose measuring 1.9 x 1.3 x 0.2 cm, and is entirely inked black. Fixation; The specimen was removed on 03/21/2024, time not provided. Cold ischemic time cannot be calculated. Total fixation time is approximately 57 hours following additional fixation. Submitted entirely as follows: A1-A2: Entire slice 1, perpendicular. A3: Intact slice 2, A4: Intact slice 3. A5: Slice 4 with biopsy site. A6: Slice 5. A7: Slice 6. A8: Slice 7. A9-A11: Slice 8 perpendicular. A12: Detached fragment. ([id number]) /FRR 03/22/20242035 Local . 01 Microscopic: . P63 and smooth muscle myosin heavy chain immunostains are performed on multiple blocks to exclude the presence of invasive malignancy. Both are positive in the areas of interest. CK5/6 is diffusely positive in the areas of usual duct hyperplasia, and ER immunostain in those areas is focally positive. The immuonstains support the absence of invasive malignancy and support usual duct hyperplasia. Controls stain appropriately. . * This test was developed and its performance characteristics determined by [facility]. It has not been cleared or approved by the U.S. Food and Drug Administration. The FDA has determined that such clearance or approval is not necessary. This test is used for clinical purposes. It should not be regarded as investigational or for research. . 01 Pathologist provided ICD-10: N63.20, N64.9 . 01 CPT . 792907, Q09273, Z44120 Specimen Comment: A courtesy copy of this report has been sent to [phone] Performed at: 01 [facility] [address] [place] [address], [place], [place] [id number] MD Yamil Mckeon MD Phone: [phone]
--- NOTE | 2024-03-21 | DI.MG.S_ITS ---
SPECIMEN LEFT BREAST: 03/21/2024 CLINICAL: Post wire. Correlation is made to exams dated: 01/24/2024 ultrasound biopsy, 01/24/2024 mammogram, 01/10/2024 ultrasound, and 01/10/2024 mammogram - [facility]. A surgical specimen was imaged for the 2 cm x 0.7 cm x 0.4 cm previous biopsy site located in the left breast at 3 o'clock middle depth. IMPRESSION: SPECIMEN The imaged specimen includes biopsy clips. Waiting for pathology results. A final report will be issued when these become available. Future imaging is recommended as follows: 07/25/2024 follow-up left ultrasound. This exam was interpreted at Station ID: [id number]. Enzo martinez/mary:03/21/2024 11:23:07 copy to: Jake Barker copy to: Shanta Carrillo
[2024-03-21 08:28] VITALS: BP 168/93; PULSE 88; RESP 16; TEMP 36.2; O2SAT 94; BMI 46.7
[2024-03-21] MEDS: LACTATED RINGERS 1,000 ML 42 ML IV (08:46)
[2024-03-21] MEDS: ACETAMINOPHEN 325 MG TABLET 975 MG PO (08:49)
--- NOTE | 2024-03-21 10:12 | PM.HP.1 ---
History of Present Illness History of Present Illness Date Patient Seen: 03/21/24 Time Patient Seen: 10:12 Chief complaint: [facility] Narrative: Camila is a 63-year-old woman who presents with a left breast mass in the 3 o'clock position has been biopsied times. It has always been benign but it has increased in size recently and has been suspicious. She would like it removed see the office note January. She had a wire localization placed today. [facility] Medical History (Updated 02/09/24 @ 16:27 by Wing Alarcon MD) Hypertension Surgical History Hx of left breast biopsy Hx of colonoscopy (08/06/22) Hx of cholecystectomy Hx of section Hx of hysterectomy Status post surgery (03/21/12) Family History Mother Hypertension Gallstones Cancer Father Hypertension Heart disease Grandmother Cancer Diabetes mellitus Grandfather Diabetes mellitus Cancer Social History household members: spouse Smoking Status: Never smoker alcohol intake: current Meds Home Medications and Allergies Home Medications Medication Instructions Recorded Confirmed Type atorvastatin 10 mg tablet 10 mg PO DAILY 08/06/22 03/21/24 History chlorthalidone 25 mg tablet 25 mg PO DAILY 08/06/22 03/21/24 History Allergies Allergy/AdvReac Type Severity Reaction Status Date / Time lisinopril Allergy Verified 03/21/24 08:28 Exam Vital Signs (past 8 hours): - 03/21/24 08:28 Temperature 97.1 F L Pulse Rate 88 Respiratory Rate 16 Blood Pressure 168/93 H Pulse Oximetry 94 Oxygen Delivery Method Room Air Oxygen Delivery Method Room Air Narrative Exam Narrative: New wire in left breast Const General: No acute distress Resp Effort & Inspection: normal respiratory effort Assessment & Plan Assessment and plan (1) Left breast mass: Qualifiers: Breast mass location: overlapping quadrants Qualified Code(s): N63.25 - Unspecified lump in the left breast, overlapping quadrants Status: Acute Plan We reviewed the risks and benefits of wire localization left breast lumpectomy and she would like to proceed.
[2024-03-21] MEDS: BUPIVACAINE 0.5% (PF) 30 ML, EPINEPHrine 0.15 MG INJ (10:44)
--- NOTE | 2024-03-21 10:52 | SUR.OPER ---
Supine on padded OR bed, head on pillow, arms secured on padded arm boards at <90 degrees abduction, legs uncrossed, safety belt at thigh, tape over blanket over lower legs.
--- NOTE | 2024-03-21 11:16 | PM.OP.1 ---
Operative Date/Time/Diagnoses Date of procedure: 03/21/24 Time of procedure: 11:18 Pre-op diagnosis: Left breast mass Post-op diagnosis: same Procedure & Clinicians Procedure: Left breast wire localization lumpectomy Same procedure as scheduled: Yes Surgeon: Wing Alarcon Product Development Ecologist: Pilo Bass Anesthesia Type: General Operative Notes Procedure in detail: The patient was marked in the preoperative area. She had her wire placed by Radiology prior to surgery. The patient was brought to the operating room and general anesthesia was induced with LMA. The left breast was prepped and draped in the usual fashion and a time-out was performed. A 4 cm real incision was created in the left lateral breast. Flaps were created superior and inferior to the incision. The wire was cut and pulled into the wound. We started to dissect around the area of interest using the wire as a guide. The wire to dislodged from the tissue and was removed however we could see the direction and depth that the tip of the wire had been indicating. We then excised a specimen of breast tissue from the left lateral breast measuring roughly 3 cm in diameter. The tissue was oriented and marked with paint and sent to Radiology where specimen mammogram was performed which showed the biopsy clips in position within the center of the specimen. We then irrigated the wound and achieved hemostasis with cautery. Once we were sure there was good hemostasis we injected some more local and then closed the wound in layers using multiple interrupted 3-0 Vicryl dermal sutures and a running 4-0 Monocryl subcuticular stitch. EBL: 10 mL Specimen: Left breast Pilo FINN provided assistance with exposure, retraction and closure of incisions. Post-operative Condition: stable Disposition: PACU
[2024-03-21 11:31] VITALS: BP 170/101; PULSE 84; RESP 17; TEMP 36.1; O2SAT 90
[2024-03-21 11:36] VITALS: BP 178/108; PULSE 78; RESP 17; O2SAT 90
[2024-03-21 11:41] VITALS: BP 147/119; PULSE 82; RESP 18; O2SAT 90
[2024-03-21 11:46] VITALS: BP 174/97; PULSE 77; RESP 19; TEMP 36.2; O2SAT 91
== END 2024-03-21 12:19 | disposition home or self-care (01) ==
PROVIDERS: PCP Internal Medicine; Referring Provider Surgery; Visit Provider Surgery
PROC: (CPT 19125; principal; 2024-03-21 11:15)
DX: N63.20 Unspecified lump in the left breast, unspecified quadrant (principal); N64.9 Disorder of breast, unspecified; N63.25 Unspecified lump in the left breast, overlapping quadrants
CPT/HCPCS: 19125; 19285; 76098; 77065; C1819; J0171; J1100; J2250; J2405; J2704; J3010

== ENCOUNTER 2024-03-28 16:49 | Emergency (ER) | payer OTHER, SELFPAY ==
[2024-03-28] VITALS (13 sets, daily range): BP systolic 83–152; BP diastolic 57–91; PULSE 90–107; RESP 19–42; TEMP 37.7; O2SAT 88–95; BMI 44.4
--- NOTE | 2024-03-28 17:03 | DI.RAD.S_ITS ---
PROCEDURE: XR CHEST 1V INDICATIONS: suspected sepsis TECHNIQUE: One view of the chest was acquired. COMPARISON: [facility], , CHEST 1 VIEW, 10/24/2010, 0:19. FINDINGS: Surgical changes and devices: None. Lungs and pleura: Lungs are clear. No pleural effusions or pneumothorax. Mediastinum: Mediastinal contours appear normal. Heart size is normal. Bones and chest wall: No suspicious bony lesions. Overlying soft tissues appear unremarkable. IMPRESSION: No acute cardiopulmonary abnormality is seen. Dictated by: Pam Tay M.D. on 03/28/2024 at 18:39 Approved by: Pam Tay M.D. on 03/28/2024 at 18:39
[2024-03-28 17:37] LABS: Add Manual Diff / Slide Review NO; Basophils Absolute Auto 100 /uL (0-100); Basophils Percent Auto 0.9 % (0-2); Eosinophils Absolute Auto 100 /uL (0-450); Eosinophils Percent Auto 0.6 % (2-4); Hematocrit 40.8 % (36-46); Hemoglobin 13.8 g/dL (12.0-16.0); Lymphocytes Absolute Auto 1500 /uL (1100-4500); Lymphocytes Percent Auto 10.9 % (25-40); Mean Corpuscular HGB Conc 33.7 % (30-36); Mean Corpuscular Hemoglobin 28.8 PG (26-34); Mean Corpuscular Volume 85.4 fL (80-100); Monocytes Absolute Auto 1000 /uL (0-900); Monocytes Percent Auto 7.7 % (3-14); Neutrophils Absolute Auto 10700 /uL (1500-7000); Neutrophils Percent Auto 79.9 % (50-75); Platelet Count 317 X10^3/uL (150-400); Red Blood Cell Count 4.78 X10^6/uL (4.0-5.2); Red Cell Distribution Width 13.8 % (11.6-14.8); White Blood Cell Count 13.4 X10^3/uL (4.5-11.0)
[2024-03-28 17:48] LABS: INR 1.2 (0.9-1.3); Prothrombin Time 13.8 SECONDS (9.4-12.5)
[2024-03-28 17:50] LABS: PTT Partial Thromboplastin Tim 31 SECONDS (25.1-36.5)
[2024-03-28 17:52] LABS: Alanine Aminotransferase 21 IU/L (<35); Albumin 4.4 g/dL (3.5-5.0); Albumin Globulin Ratio 1.2 (1.0-2.8); Alkaline Phosphatase 103 U/L (38-126); Aspartate Aminotransferase 23 IU/L (14-36); BUN Creatinine Ratio 19.4 (6-22); Bilirubin Total 1.1 mg/dL (0.2-1.3); Blood Urea Nitrogen 14 mg/dL (7-17); Calcium 9.2 mg/dL (8.4-10.2); Carbon Dioxide 33 mmol/L (22-32); Chloride 96 mmol/L (98-107); Estimated Glomerular Filt Rate > 60 mL/min (>60); Globulin 3.7 g/dL (1.7-4.1); Glucose 129 mg/dL (80-110); HEMOLYSIS < 15 (0-50); Lipase 35 U/L (23-300); Potassium 2.9 mmol/L (3.4-5.1); Sodium 134 mmol/L (137-145); Total Protein 8.1 g/dL (6.3-8.2)
[2024-03-28 17:53] LABS: Lactate (Lactic Acid) 1.1 mmol/L (0.7-2.1)
[2024-03-28 18:09] LABS: Procalcitonin 0.06 ng/mL (<0.5)
--- NOTE | 2024-03-28 18:30 | ED_ITS ---
HPI - General Adult General Chief complaint: Shortness of Breath/Dyspnea Stated complaint: SOB, sent by office Time Seen by Provider: 03/28/24 18:02 Source: patient Mode of arrival: Ambulatory History of Present Illness HPI narrative: Patient is a 63-year-old female who had a lumpectomy approximately 1 week ago. Since that time she has had a cough and congestion. She is having some urinary incontinence with the coughing and sometimes even without coughing. She went to her primary doctor's office today. Had a urinalysis. Had some blood and bilirubin in the urine but no other signs of infection. She was not having any dysuria. No fevers. No sore throat. No sinus congestion. No chest pain. No GI related symptoms. She was sent to the emergency department because of the cough and because of saturations in the 88-91% on room air at the doctor's office. Related Data Home Medications Medication Instructions Recorded Confirmed atorvastatin 10 mg tablet 10 mg PO DAILY 08/06/22 03/21/24 chlorthalidone 25 mg tablet 25 mg PO DAILY 08/06/22 03/21/24 Previous Rx's Medication Instructions Recorded hydrocodone 5 mg-acetaminophen 325 1 tab PO Q8H PRN pain #14 tabs 03/21/24 mg tablet benzonatate 100 mg capsule 100 mg PO BID-TID PRN cough #10 03/28/24 caps Allergies Allergy/AdvReac Type Severity Reaction Status Date / Time lisinopril Allergy Verified 03/21/24 08:28 Review of Systems Review of Systems ROS Unobtainable: All systems reviewed & are unremarkable except as noted in HPI and below Patient History Medical History Hypertension Surgical History Hx of left breast biopsy Hx of colonoscopy (08/06/22) Hx of cholecystectomy Hx of section Hx of hysterectomy Status post surgery (03/21/12) Family History Mother Hypertension Gallstones Cancer Father Hypertension Heart disease Grandmother Cancer Diabetes mellitus Grandfather Diabetes mellitus Cancer Social History household members: spouse Smoking Status: Never smoker alcohol intake: current Smoking Status: Never smoker alcohol intake frequency: holidays/special occasions only Substance Use Type: does not use Exam Initial Vital Signs Initial Vital Signs: Vital Signs Temperature 99.9 F H 03/28/24 16:57 Pulse Rate 102 H 03/28/24 16:57 Respiratory Rate 03/28/24 16:57 Blood Pressure 150/83 H 03/28/24 16:57 Pulse Oximetry 88 L 03/28/24 16:57 Oxygen Delivery Method Room Air 03/28/24 16:57 Const General: cooperative, comfortable and No ill appearing [facility] Head: normal to inspection and normocephalic Resp Effort & Inspection: normal respiratory effort Auscultation: clear to auscultation bilaterally Cardio Rate: regular rate Rhythm: regular rhythm GI Inspection: normal to inspection and non-distended Palpation: soft and No tender Skin General: no rashes or lesions noted Neuro General: patient alert, patient awake and moves all extremities Extrem General: No edema Course Orders Ordered: ED Orders 03/28/24 17:03 XR chest 1V Stat RT Consult Eval and Treat NOW 03/28/24 17:25 BNP [NT-proBNP (BNP-Adult 18+)] Stat Complete Blood Count AUTO DIFF Stat Comprehensive Metabolic Panel Stat D Dimer Stat Lactate (Lactic Acid) Stat Lipase Stat PTT Partial Thromboplastin Rakesh Stat Procalcitonin Stat Prothrombin Time INR Stat Troponin & CK Cardiac Panel Stat 03/28/24 17:42 Blood Culture Stat 03/28/24 18:38 Respiratory Panel (Film Array) Stat Discontinued Medications Benzonatate (Benzonatate 100 Mg Capsule) 100 mg PO NOW ONE Stop: 03/28/24 20:00 Sodium Chloride (Normal Saline 0.9%) 1,000 mls @ 1,000 mls/hr IV BOLUS ONE Stop: 03/28/24 18:01 Last Admin: 03/28/24 18:33 Dose: 1,000 mls/hr Documented By: RODO Ondansetron HCl (Ondansetron 4 Mg/2 Ml Inj) 4 mg IV NOW PRN PRN Reason: Nausea And Vomiting Ondansetron HCl (Ondansetron 4 Mg Odt) 4 mg SL NOW PRN PRN Reason: Nausea And Vomiting Vital Signs Vital signs: Vital Signs - 8 hr 03/28/24 18:00 03/28/24 18:00 03/28/24 18:30 Pulse Rate 98 H 97 H Respiratory Rate 28 H 42 H Blood Pressure 134/64 Pulse Oximetry 95 94 Oxygen Delivery Method Oxygen Flow Rate 03/28/24 18:30 03/28/24 18:38 03/28/24 19:00 Pulse Rate 105 H 93 H Respiratory Rate 28 H 26 H Blood Pressure 141/83 H Pulse Oximetry 93 94 Oxygen Delivery Method Nasal Cannula Oxygen Flow Rate 2 03/28/24 19:01 03/28/24 19:01 03/28/24 19:03 Pulse Rate 95 H Respiratory Rate 35 H Blood Pressure 83/57 L 129/77 Pulse Oximetry 93 Oxygen Delivery Method Oxygen Flow Rate 03/28/24 19:03 03/28/24 19:30 03/28/24 19:30 Pulse Rate 92 H 90 Respiratory Rate 34 H 28 H Blood Pressure 132/80 Pulse Oximetry 93 94 Oxygen Delivery Method Oxygen Flow Rate 03/28/24 20:00 03/28/24 20:00 Pulse Rate 96 H Respiratory Rate 19 Blood Pressure 128/80 Pulse Oximetry 94 Oxygen Delivery Method Oxygen Flow Rate Medical Decision Making Medical Records Medical records reviewed: Yes I reviewed the patient's medical records. Lab Data Lab results reviewed: Yes I reviewed the patient's lab results. 03/28/24 17:25 03/28/24 17:25 Labs: Lab Results 03/28/24 03/28/24 Range/Units 17:25 18:38 WBC 13.4 H (4.5-11.0) X10^3/uL RBC 4.78 (4.0-5.2) X10^6/uL Hgb 13.8 (12.0-16.0) g/dL Hct 40.8 (36-46) % MCV 85.4 (80-100) fL MCH 28.8 (26-34) PG MCHC 33.7 (30-36) % RDW 13.8 (11.6-14.8) % Plt Count 317 (150-400) X10^3/uL Neut % (Auto) 79.9 H (50-75) % Lymph % (Auto) 10.9 L (25-40) % [place] % (Auto) 7.7 (3-14) % Eos % (Auto) 0.6 L (2-4) % Baso % (Auto) 0.9 (0-2) % Neut # (Auto) 77954 H (1118-7958) /uL Lymph # (Auto) 1500 (6366-9389) /uL [place] # (Auto) 1000 H (0-900) /uL Eos # (Auto) 100 (0-450) /uL Baso # (Auto) 100 (0-100) /uL PT 13.8 H (9.4-12.5) SECONDS INR 1.2 (0.9-1.3) APTT 31 (25.1-36.5) SECONDS D-Dimer 427 (<500) ng/ml Sodium 134 L (137-145) mmol/L Potassium 2.9 L (3.4-5.1) mmol/L Chloride 96 L (98-107) mmol/L Carbon Dioxide 33 H (22-32) mmol/L BUN 14 (7-17) mg/dL Creatinine 0.72 (0.52-1.04) mg/dL Estimated GFR > 60 (>60) mL/min BUN/Creatinine Ratio 19.4 (6-22) Glucose 129 H (80-110) mg/dL Lactate 1.1 (0.7-2.1) mmol/L Calcium 9.2 (8.4-10.2) mg/dL Total Bilirubin 1.1 (0.2-1.3) mg/dL AST 23 (14-36) IU/L ALT 21 (<35) IU/L Alkaline Phosphatase 103 (38-126) U/L Total Creatine Kinase 108 (30-135) U/L Troponin I < 0.012 (0.01-0.034) ng/mL NT-Pro-B Natriuret Pep 26 (<125) pg/mL Total Protein 8.1 (6.3-8.2) g/dL Albumin 4.4 (3.5-5.0) g/dL Globulin 3.7 (1.7-4.1) g/dL Albumin/Globulin Ratio 1.2 (1.0-2.8) Lipase 35 (23-300) U/L Procalcitonin 0.06 (<0.5) ng/mL Chlamy pneumoniae PCR Not detected (Not Detect) Adenovirus (PCR) Not detected (Not Detect) B.parapertussis DNA PCR Not detected (Not Detecte) Coronavirus OC43 (PCR) Not detected (Not Detect) Coronavirus HKU1 (PCR) Not detected (Not Detect) Coronavirus 229E (PCR) Not detected (Not Detect) SARS-CoV-2 (PCR) Not detected (Not Detecte) Coronavirus NL63 (PCR) Not detected (Not Detect) Human Metapneumovir PCR Not detected (Not Detect) Influenza Type A (PCR) Not detected (Not Detect) Influenza Type B (PCR) Not detected (Not Detect) M. pneumoniae (PCR) Not detected (Not Detect) Parainfluenza 1 (PCR) Not detected (Not Detect) Parainfluenza 2 (PCR) Not detected (Not Detect) Parainfluenza 3 (PCR) Not detected (Not Detect) Parainfluenza 4 (PCR) Not detected (Not Detect) RSV (PCR) Not detected (Not Detect) Entero/Rhino (PCR) Not detected (Not Detect) Imaging Data Chest x-ray: Radiologist's Impression: PROCEDURE: XR CHEST 1V INDICATIONS: suspected sepsis TECHNIQUE: One view of the chest was acquired. COMPARISON: [facility], CHEST 1 VIEW, 10/24/2010, 0:19. FINDINGS: Surgical changes and devices: None. Lungs and pleura: Lungs are clear. No pleural effusions or pneumothorax. Mediastinum: Mediastinal contours appear normal. Heart size is normal. Bones and chest wall: No suspicious bony lesions. Overlying soft tissues appear unremarkable. IMPRESSION: No acute cardiopulmonary abnormality is seen ECG Data Attestation: I personally reviewed and interpreted this ECG as follows: Interpretation: Sinus rhythm Ventricular rate 96 Normal axis LVH Normal QRS Nonspecific ST T wave changes MDM Narrative Medical decision making narrative: Chest x-ray is unremarkable. Respiratory panel was negative which is somewhat surprising given her presentation today. There is no indication for antibiotics. Her urinalysis from the primary doctor's office did not show any signs of infection. Low suspicion for ACS. She ambulate around the emergency department and did not become hypoxic nor short of breath. Low suspicion for CHF. Troponin is negative. D-dimer is negative. Will try some symptom treatment with the cough. Advised that she talk with her primary doctor about further evaluation of the hematuria in the other urinary symptoms she may need a referral to either see gynecology or urology. No indication for admission to the hospital. She was given return precautions. She expressed understanding and agreement. Discharge Plan Departure Patient Disposition: Home Clinical Impression: Cough, Urinary incontinence Instructions: Cough (Alternative Therapy), Cough Activity Restrictions/Additional Instructions: Continue to take all of your medications as directed. I recommend that you contact your primary provider's office for a follow-up. Use the cough medicine as needed. Return to the emergency department for new symptoms. Prescriptions: New benzonatate 100 mg capsule 100 mg PO BID-TID PRN (Reason: cough) Qty: 10 0RF No Action chlorthalidone 25 mg Tablet 25 mg PO DAILY atorvastatin 10 mg Tablet 10 mg PO DAILY hydrocodone-acetaminophen 5-325 mg tablet 1 tab PO Q8H PRN (Reason: pain) Qty: 14 0RF Referrals: Shanta Carrillo ARNP [Primary Care Provider] - Stand Alone Forms: Patient Portal/API
[2024-03-28] MEDS: SODIUM CHLORIDE 0.9% 1,000 ML 1000 ML IV (18:33)
[2024-03-28 18:36] LABS: Creatine Kinase 108 U/L (30-135)
[2024-03-28 18:41] LABS: D Dimer 427 ng/ml (<500)
[2024-03-28 18:47] LABS: NT-proBNP (BNP-Adult 18+) 26 pg/mL (<125)
[2024-03-28 18:49] LABS: Troponin I < 0.012 ng/mL (0.01-0.034)
[2024-03-28 19:30] LABS: Adenovirus Not Detected (Not Detect); B. parapertussis Not Detected (Not Detecte); Bordetella pertussis Not Detected (Not Detect); Chlamydophila pneumoniae Not Detected (Not Detect); Coronavirus 229E Not Detected (Not Detect); Coronavirus HKU1 Not Detected (Not Detect); Coronavirus NL 63 Not Detected (Not Detect); Coronavirus OC43 Not Detected (Not Detect); Human Metapneumovirus Not Detected (Not Detect); Human Rhinovirus/Enterovirus Not Detected (Not Detect); Influenza A Not Detected (Not Detect); Influenza B Not Detected (Not Detect); Mycoplasma pneumoniae Not Detected (Not Detect); Parainfluenza Virus 1 Not Detected (Not Detect); Parainfluenza Virus 2 Not Detected (Not Detect); Parainfluenza Virus 3 Not Detected (Not Detect); Parainfluenza Virus 4 Not Detected (Not Detect); Respiratory Syncytial Virus Not Detected (Not Detect); SARS- CoV-2 Not Detected (Not Detecte)
--- NOTE | 2024-03-28 19:53 | PC.NURSE ---
pt ambulated withou O2, sats remained above 90, denied any SOB
== END 2024-03-28 20:11 | disposition home or self-care (01) ==
PROVIDERS: Emergency Medicine; Emergency Provider Emergency Medicine; PCP Internal Medicine
DX: R05.9 Cough, unspecified (principal); R32 Unspecified urinary incontinence; R06.02 Shortness of breath; Z20.822 Contact with and (suspected) exposure to COVID-19
CPT/HCPCS: 36415; 71045; 80053; 82550; 83605; 83690; 83880; 84145; 84484; 85025; 85379; 85610; 85730; 87040; 87633; 93005; 99284

== ENCOUNTER → 2024-04-14 07:27 | Outpatient (CLI) | payer OTHER, SELFPAY ==
[2024-04-14 08:30] LABS: Add Manual Diff / Slide Review NO; Basophils Absolute Auto 100 /uL (0-100); Basophils Percent Auto 1.2 % (0-2); Eosinophils Absolute Auto 200 /uL (0-450); Eosinophils Percent Auto 4.4 % (2-4); Hematocrit 39.8 % (36-46); Hemoglobin 13.3 g/dL (12.0-16.0); Lymphocytes Absolute Auto 1400 /uL (1100-4500); Lymphocytes Percent Auto 24.7 % (25-40); Mean Corpuscular HGB Conc 33.4 % (30-36); Mean Corpuscular Hemoglobin 29.1 PG (26-34); Mean Corpuscular Volume 87.1 fL (80-100); Monocytes Absolute Auto 400 /uL (0-900); Monocytes Percent Auto 6.6 % (3-14); Neutrophils Absolute Auto 3500 /uL (1500-7000); Neutrophils Percent Auto 63.1 % (50-75); Platelet Count 400 X10^3/uL (150-400); Red Blood Cell Count 4.57 X10^6/uL (4.0-5.2); Red Cell Distribution Width 13.9 % (11.6-14.8); White Blood Cell Count 5.5 X10^3/uL (4.5-11.0)
[2024-04-14 14:07] LABS: Hemoglobin A1C% w Est Avg Glu 5.8 % (4.0-6.0)
[2024-04-14 15:43] LABS: Alanine Aminotransferase 25 IU/L (<35); Albumin 3.8 g/dL (3.5-5.0); Albumin Globulin Ratio 1.3 (1.0-2.8); Alkaline Phosphatase 83 U/L (38-126); Aspartate Aminotransferase 29 IU/L (14-36); BUN Creatinine Ratio 22.4 (6-22); Bilirubin Total 0.5 mg/dL (0.2-1.3); Blood Urea Nitrogen 19 mg/dL (7-17); Calcium 9.4 mg/dL (8.4-10.2); Carbon Dioxide 34 mmol/L (22-32); Chloride 102 mmol/L (98-107); Cholesterol 161 mg/dL (140-199); Estimated Glomerular Filt Rate > 60 mL/min (>60); Globulin 2.9 g/dL (1.7-4.1); Glucose 89 mg/dL (80-110); HDL Cholesterol 52 mg/dL (40-60); HEMOLYSIS < 15 (0-50); LDL Cholesterol Calculated 88 mg/dL (<100); Potassium 4.1 mmol/L (3.4-5.1); Sodium 142 mmol/L (137-145); Total Protein 6.7 g/dL (6.3-8.2); Triglycerides 104 mg/dL (35-150)
== END ==
PROVIDERS: PCP Family Medicine; Referring Provider Family Medicine; Visit Provider Family Medicine
DX: I10 Essential (primary) hypertension (principal); E78.5 Hyperlipidemia, unspecified; F41.9 Anxiety disorder, unspecified; J06.0 Acute laryngopharyngitis; E66.9 Obesity, unspecified; G47.00 Insomnia, unspecified; R06.83 Snoring; E87.1 Hypo-osmolality and hyponatremia; E87.6 Hypokalemia; R73.09 Other abnormal glucose; Z13.1 Encounter for screening for diabetes mellitus
CPT/HCPCS: 36415; 80053; 80061; 83036; 85025

== ENCOUNTER → 2025-01-27 07:47 | Outpatient (CLI) | payer BC, SELFPAY ==
--- NOTE | 2025-01-27 07:50 | DI.RAD.S_ITS ---
PROCEDURE: XR CHEST 2V INDICATIONS: Wheezing TECHNIQUE: 2 views of the chest were acquired. COMPARISON: [facility], CR, XR CHEST 1V, 03/28/2024, 17:10. FINDINGS: Surgical changes and devices: None. Lungs and pleura: Lungs are clear. No pleural effusions or pneumothorax. Peribronchial cuffing. Mediastinum: Mediastinal contours are normal. Heart size is normal. Bones and chest wall: No suspicious bony abnormalities. Soft tissues appear unremarkable. IMPRESSION: Peribronchial cuffing, typically indicating infectious or inflammatory bronchitis. Dictated by: Enzo Mast M.D. on 01/27/2025 at 11:08 Approved by: Enzo Mast M.D. on 01/27/2025 at 11:08
[2025-01-27 09:07] LABS: Hemoglobin A1C% w Est Avg Glu 5.4 % (4.0-6.0)
[2025-01-27 09:16] LABS: Alanine Aminotransferase 30 IU/L (<35); Albumin 4.2 g/dL (3.5-5.0); Albumin Globulin Ratio 1.5 (1.0-2.8); Alkaline Phosphatase 76 U/L (38-126); Aspartate Aminotransferase 30 IU/L (14-36); BUN Creatinine Ratio 15.9 (6-22); Bilirubin Total 0.7 mg/dL (0.2-1.3); Blood Urea Nitrogen 13 mg/dL (7-17); Calcium 9.5 mg/dL (8.4-10.2); Carbon Dioxide 35 mmol/L (22-32); Chloride 102 mmol/L (98-107); Cholesterol 211 mg/dL (140-199); Estimated Glomerular Filt Rate > 60 mL/min (>60); Globulin 2.8 g/dL (1.7-4.1); Glucose 93 mg/dL (80-110); HDL Cholesterol 54 mg/dL (40-60); HEMOLYSIS < 15 (0-50); LDL Cholesterol Calculated 134 mg/dL (<100); Potassium 4.6 mmol/L (3.4-5.1); Sodium 141 mmol/L (137-145); Triglycerides 113 mg/dL (35-150)
[2025-01-27 09:22] LABS: NT-proBNP (BNP-Adult 18+) 92 pg/mL (<125)
[2025-01-27 09:44] LABS: Thyroid Stimulating Hormone 3.81 uIU/mL (0.47-4.68)
== END ==
PROVIDERS: PCP Family Medicine; Referring Provider Family Medicine; Visit Provider Family Medicine
DX: R06.2 Wheezing (principal); I10 Essential (primary) hypertension; E78.5 Hyperlipidemia, unspecified; Z13.29 Encounter for screening for other suspected endocrine disorder; R63.5 Abnormal weight gain; Z68.42 Body mass index [BMI] 45.0-49.9, adult
CPT/HCPCS: 36415; 71046; 80053; 80061; 83036; 83880; 84443

== ENCOUNTER → 2025-02-22 06:53 | Outpatient (CLI) | payer BC, SELFPAY ==
--- NOTE | 2025-02-22 06:53 | DI.ECHO.S_ITS ---
[facility]+ [facility] : : [id number] : [place] : : [id number] : : Phone: [phone] Echocardiogram Report + + :Name: HARLAN CRUZ Study Date: 02/22/2025 Height: 64 in : :[facility] ReadingLocation: Weight: 300 lb : : Gender: Female BSA: 2.3 m2 : :: 1960 Age: 64 yrs BP: 148/96 mmHg: :Reason For Study: WHEEZING, WEIGHTGAIN : :Ordering Physician: HOA, : :DAVEY Performed By: Fer Mejia : :Referring: DAVEY CAMARA : + + Interpretation Summary The study quality was technically difficult. The ejection fraction is estimated to be 55-60%. Diastolic parameters suggest probable normal left ventricular diastolic function and normal filling pressures. The right ventricle is normal in size and function. No obvious valvular abnormalities. Pulmonary artery pressures cannot be estimated because of the lack of a measurable TR jet velocity but the IVC suggests a CVP of around 3 mmHg. Procedure: A two-dimensional transthoracic echocardiogram with color flow and Doppler was performed. The study quality was technically difficult. Most of the acoustic windows were suboptimal, but the best imaging was obtained from the apical window. There is no prior echocardiogram noted for this patient. The patient was in normal sinus rhythm during the exam. Left Ventricle: The left ventricle is normal in size. There is no ventricular septal defect visualized. The ejection fraction is estimated to be 55-60%. Diastolic parameters suggest probable normal left ventricular diastolic function and normal filling pressures. Right Ventricle: The right ventricle is normal in size and function. Atria: The left atrial size is normal. Right atrial size is normal. The interatrial septum is not well visualized. Mitral Valve: The mitral valve is grossly normal. There is no mitral regurgitation noted. Aortic Valve: The aortic valve is not well visualized. There is no aortic valve stenosis. There is trace aortic regurgitation. Tricuspid Valve: The tricuspid valve is not well visualized, but is grossly normal. No tricuspid regurgitation. Pulmonary artery pressures cannot be estimated because of the lack of a measurable TR jet velocity but the IVC suggests a CVP of around 3 mmHg. Pulmonic Valve: The pulmonic valve is not well visualized. Great Vessels: The aortic root is not well visualized but is probably normal size. The ascending aorta could not be visualized. The pulmonary is not well visualized. The IVC is of normal diameter and collapses greater than 50% with a sniff. This suggests a low right atrial pressure of 3 mm Hg. Pericardium/ Pleura There is no pericardial effusion. MMode/2D Measurements & Calculations LVIDd: 3.9 cm LA A2 area: 18.9 cm2 LVIDs: 2.5 cm LA A4 area: 16.5 cm2 FS: 36.0 % LA length (vol): 4.8 cm EPSS: 1.1 cm LA vol: 55.2 ml IVSd: 1.1 cm LA vol index: 23.7 ml/m2 LVPWd: 1.1 cm LV abarca. diameter/BSA (cm/m^2): 1.7 LV sys. diameter/BSA (cm/m^2): 1.1 RA long axis: 4.3 cm RVD1 (basal): 3.8 cm RA area: 11.3 cm2 RVD2 (mid): 2.9 cm RA vol: 25.1 ml TAPSE: 2.0 cm RA : 10.8 ml/m2 IVC diam: 1.5 cm Doppler Measurements & Calculations Ao V2 max: 130.1 cm/sec LVOT Max George: 98.7 cm/sec Ao V2 mean: 92.8 cm/sec LV V1 max P.9 mmHg Ao max P.8 mmHg LV V1 VTI: 22.3 cm Ao mean P.8 mmHg sev ratio: 0.88 Ao V2 VTI: 25.4 cm MV E max george: 55.0 cm/sec MV A max george: 84.2 cm/sec MV E/A: 0.65 Med Peak E' George: 6.2 cm/sec E/E' med: 8.8 Lat Peak E' George: 7.9 cm/sec E/E' lat: 6.9 E/e' average: 7.9 MV dec time: 0.26 sec Reading Physician:08:59 PM
== END ==
PROVIDERS: PCP Family Medicine; Referring Provider Family Medicine; Visit Provider Family Medicine
DX: I10 Essential (primary) hypertension (principal); R06.2 Wheezing; R63.5 Abnormal weight gain; Z68.42 Body mass index [BMI] 45.0-49.9, adult
CPT/HCPCS: 93306

== ENCOUNTER → 2025-03-26 14:45 | Outpatient (CLI) | payer BC, SELFPAY | LOC: RESP 14:45 | PROVIDERS: PCP Family Medicine; Referring Provider Family Medicine; Visit Provider Family Medicine | DX: R09.82 Postnasal drip (principal); G47.00 Insomnia, unspecified; E66.9 Obesity, unspecified; J06.0 Acute laryngopharyngitis; R06.02 Shortness of breath; R06.2 Wheezing; R94.2 Abnormal results of pulmonary function studies | CPT/HCPCS: 94060; 94726; 94729 ==